=== PATIENT | male | born 1960 | race Caucasian/White ===

== ENCOUNTER 2019-03-19 14:16 | Emergency (ER) | payer OTHER ==
[~2019-03-19] VITALS: Ht 190.5 cm; Wt 117.9 kg
--- NOTE | ~2019-03-19 | EMS ---
[place] [address] EMS Patient Care Report Name: LUZ MARINA DEL TORO Room #: PRE MMaco#: [id number] Admission: ������������������ Attend Phys: Discharge: ������������������ Date of : 64 Report #: [id number] THIS REPORT FOR: //name// Report Transmitted: 03/19/2019 14:15 EMS Care Summary [place], [place]/[facility] Incident [id number] @ 03/19/2019 13:34 Incident Location [address] [place] [address] Patient LUZ MARINA DEL TORO Male, 58 Years 1960 Patient Address [address] [id number] Patient History Diabetes, Patient Allergies Iodine, Patient Medications Metformin, Chief Complaint LOW BLOOD SUGAR Disposition Transported No Lights/[facility] Dispatch Reason Falls Transported To [facility] Narrative PT FOUND LYING ON FLOOR. B&M NURSE ON SCENE. NURSE STATES THAT PT HAD FALLEN AND HIS BLOOD SUGAR WAS LOW AT 46. SHE STATES THAT PT HAS HAD 2 ORAL GLUCOSE TABS, 2 OJS AND AN APPLE SAUCE. ON OUR ARRIVAL, SUGAR HAD ONLY INCREASED TO 48. PT AGREED TO GO FOR EVALUATION. PT DENIES MEDICATION, DIET [place] [address] EMS Patient Care Report Name: LUZ MARINA DEL TORO Room #: PRE Yolanda#: [id number] Admission: ������������������ Attend Phys: Discharge: ������������������ Date of : 64 Report #: [id number] TRANSPORTED WITHOUT INCIDENT. Initial Vitals @PTAP: 80,R: 18,Pain: 0/10,GCS: 14,Glucose: 47,Revised Trauma: 12, @14:01P: 76,R: 18,BP: 173/85,Pain: 0/10,GCS: 15,Glucose: 54,SpO2: 99,Revised Trauma: 12, Assessments @13:45MENTAL:No Abnormalities,SKIN:No Abnormalities,HEENT:Head/Face: No Abnormalities,Eyes: No Abnormalities,Neck/Airway: No Abnormalities,LUNG SOUNDS:ABDOMEN:PELVIS//GI:EXTREMITIES:PULSE:NEURO:No Abnormalities, Impression Diabetic Hypoglycemia Procedures @13:45ALS AssessmentResponse: UnchangedSucceeded Timeline LICENSED LOAN OFFICER ASSISTANT,BP: 170/ M,PULSE: 80,RR: 18 R,SPO2: Ox,ETCO2: ,B,PAIN: 0,GCS: 14, 13:32,Call Received 13:32,Dispatch Notified 13:34,Dispatched 13:35,En Route 13:40,On Scene 13:45,At Patient 13:45,ALS Assessment,Response: UnchangedSucceeded, 14:01,BP: 173/85 M,PULSE: 76,RR: 18 R,SPO2: 99 Ox,ETCO2: ,B,PAIN: 0,GCS: 15, 14:02,Depart Scene 14:12,At Destination 14:44,Call Closed Disclaimer [email or web address] Copyright 2019 [employer] This EMS Care Summary contains data elements from the applicable legal record (which may be displayed differently). It is designed to provide pertinent information for the following purposes: continuity of care, clinical quality, and state data reporting. The complete legal record is available to ED staff and administrators of the receiving hospital in [facility]'s Patient Tracker. All data is provided "as is."
[2019-03-19 15:59] VITALS: BP 135/70
== END 2019-03-19 15:59 | disposition home or self-care (01) ==
LOC: ER 14:16
DX: E11.649 Type 2 diabetes mellitus with hypoglycemia without coma (principal); I10 Essential (primary) hypertension; Z91.041 Radiographic dye allergy status